=== PATIENT | female | born 1975 | race Caucasian/White ===

== ENCOUNTER → 2021-08-13 00:15 | Outpatient (CLI) | payer BC, SELFPAY ==
[2021-08-13 18:52] LABS: SARS-CoV-2 RNA PCR Negative
== END ==
PROVIDERS: PCP Internal Medicine; Visit Provider Internal Medicine
DX: J06.9 Acute upper respiratory infection, unspecified (principal); Z20.822 Contact with and (suspected) exposure to COVID-19
CPT/HCPCS: C9803; U0003; U0005

== ENCOUNTER 2024-01-05 10:00 | Emergency (ER) | payer OTHER, SELFPAY ==
[2024-01-05 10:09] VITALS: BP 152/81; PULSE 88; RESP 16; TEMP 36.2; O2SAT 100
--- NOTE | 2024-01-05 10:15 | ED.GENADULT ---
HPI - General Adult General Chief complaint: Eye Problems Stated complaint: Left Eye Irritation Time Seen by Provider: 01/05/24 10:16 Source: patient, RN notes reviewed and old records reviewed Mode of arrival: ambulatory Limitations: no limitations History of Present Illness HPI narrative: 48-year-old female presents to [facility] with complaint of left eye discomfort and scant drainage that started at 2:00 a.m. today. Patient denies any upper respiratory complaints at this time. Patient acuity checked upon arrival. Patient wearing reader glasses. Patient denies any visual changes. Related Data Home Medications Medication Instructions Recorded Confirmed zlhxcfuhukqh-Zn-ovxx-minerals 27 1 tablet PO DAILY 09/01/19 01/05/24 mg-0.4 mg tablet loratadine 10 mg disintegrating 20 mg PO PRN PRN Allergy Symptoms 02/12/21 01/05/24 tablet Allergies Allergy/AdvReac Type Severity Reaction Status Date / Time cyclobenzaprine Allergy Intermediate hypersensit Verified 01/05/24 10:17 ivity prednisone Allergy Intermediate Agitated, Verified 01/05/24 10:17 lack of appetite acetaminophen Allergy Mild Vomiting Verified 01/05/24 10:17 levofloxacin AdvReac Intermediate Dizziness Verified 01/05/24 10:17 Review of Systems Review of Systems: All systems reviewed & are unremarkable except as noted in HPI and below Constitutional: Constitutional: Reports no additional constitutional complaints Eyes: Eyes: Reports as per HPI, Denies change in vision, Denies diplopia, Reports eye discharge, Reports irritation ( left) and Reports photophobia ENT: Reports system reviewed and no additional complaints, except as documented Cardiovascular: Cardiovascular: Reports no additional cardiovascular complaints, Denies chest pain and Denies dyspnea Respiratory: Respiratory: Reports no additional respiratory complaints, Denies cough and Denies dyspnea Musculoskeletal: Musculoskeletal: Reports no additional musculoskeletal complaints Neurologic: Reports system reviewed and no additional complaints, except as documented Psychiatric: Psychiatric: Reports no additional psychiatric complaints [facility] Past Medical History Medical History Cervical osteoarthritis Depression Hypertension Mitral valve prolapse Panic attacks Screening mammogram, encounter for Surgical History Surgical History History of laparoscopy (~1999) endometriosis History of total abdominal hysterectomy (~2003) Family History Family History Father Hypertension Family history of smoking Cerebrovascular accident Grandparent Asthma Acute myocardial infarction, Onset Age: 50 Family history of heart disease in male family member before age 55 maternal grandfather Diabetes mellitus maternal grandfather Family history of aortic aneurysm Sibling Asthma Mother Family history of elevated blood lipids Patient's mother is Social History Social History Smoking packs per day: 0.5 Smoking cigarettes per day: 10.0 Years smoked: 30 Smoking pack-years: 15.00 Smoking status: Current every day smoker Tobacco type: cigarettes Second hand tobacco smoke exposure: Yes Alcohol intake: current Drinks per week: 42 Alcohol use details: 6 beers a day Substance use: never Substance use type: does not use Lack of Transportation: No Lack of Food: Never True Current Housing: I Have Housing Concerned About Future Housing: No Difficulty Paying Gas/Electric Bills: No Difficulty Paying for Meds: No Currently Unemployed: No Education: Associate Degree Difficulty w/ Childcare or Family Care: No Living arrangements: with family Additional living arrangements comments: mar
== END 2024-01-05 10:48 | disposition home or self-care (01) ==
PROVIDERS: Emergency Provider Nurse Practitioner Family; PCP Physician Assistant
DX: H10.9 Unspecified conjunctivitis (principal); F17.210 Nicotine dependence, cigarettes, uncomplicated; M47.812 Spondylosis without myelopathy or radiculopathy, cervical region; I10 Essential (primary) hypertension; I34.1 Nonrheumatic mitral (valve) prolapse; F32.A Depression, unspecified; F41.0 Panic disorder [episodic paroxysmal anxiety]
CPT/HCPCS: 99213; G0463

== ENCOUNTER 2024-04-16 13:24 | Emergency (ER) | payer OTHER, SELFPAY ==
--- NOTE | ~2024-04-16 | XR_ITS ---
EXAMINATION: XR ribs RT 2V DATE: 04/16/2024 13:56 INDICATION: Right rib pain. TECHNIQUE: 2 views of the right ribs on 3 radiographs were obtained. COMPARISON: Chest 2 views 07/03/2019 FINDINGS: There is no right-sided pneumonia, pleural effusion, or pneumothorax. IMPRESSION: 1. No rib fracture. Reviewed, dictated and finalized at location A. IMPRESSION: 1. No rib fracture.
--- NOTE | 2024-04-16 13:30 | ED.CHESTPAIN ---
HPI - Chest Pain General Chief Complaint: Unspecified Stated Complaint: Rib/Chest Pain and Injury Time Seen by Provider: 04/16/24 14:08 Mode of arrival: ambulatory Limitations: no limitations History of Present Illness HPI narrative: 48 year old female presents with concern for midsternal and right chest wall pain. She reports on Friday she was reaching for an object overhead and she felt a painful pop in her low sternum ache radiating under the right breast. She reports symptoms happened again when she is reaching and to the washing machine with her right arm. She reports when she is not moving she has no pain but when she moves her right extremity, coughs, takes a deep breath she has pain. She denies other pain. She denies rash, redness, open skin, warmth to the area. MD complaint: chest discomfort Related Data Home Medications Medication Instructions Recorded Confirmed saxmybetdamf-Kk-xofs-minerals 27 1 tablet PO DAILY 09/01/19 04/16/24 mg-0.4 mg tablet loratadine 10 mg disintegrating 20 mg PO PRN PRN Allergy Symptoms 02/12/21 04/16/24 tablet Allergies Allergy/AdvReac Type Severity Reaction Status Date / Time cyclobenzaprine Allergy Intermediate hypersensit Verified 04/16/24 13:28 ivity prednisone Allergy Intermediate Agitated, Verified 04/16/24 13:28 lack of appetite acetaminophen Allergy Mild Vomiting Verified 04/16/24 13:28 levofloxacin AdvReac Intermediate Dizziness Verified 04/16/24 13:28 Review of Systems Review of Systems: CONSTITUTIONAL: Denies malaise, chills, sweats, or fever. CARDIOVASCULAR: Denies chest pain, palpitations, or edema. RESPIRATORY: Denies cough or dyspnea. GASTROINTESTINAL: Denies abdominal pain SKIN: Denies rash or itching. MUSCULOSKELETAL: Reports lower sternal chest wall pain radiating to the right chest NEUROLOGIC: Denies numbness, weakness All systems reviewed & are unremarkable except as noted in HPI and below PMFSH Past Medical History Medical History Cervical osteoarthritis Depression Hypertension Mitral valve prolapse Panic attacks Screening mammogram, encounter for Surgical History Surgical History History of laparoscopy (~1999) endometriosis History of total abdominal hysterectomy (~2003) Family History Family History Father Hypertension Family history of smoking Cerebrovascular accident Grandparent Asthma Acute myocardial infarction, Onset Age: 50 Family history of heart disease in male family member before age 55 maternal grandfather Diabetes mellitus maternal grandfather Family history of aortic aneurysm Sibling Asthma Mother Family history of elevated blood lipids Patient's mother is Social History Social History Smoking packs per day: 0.5 Smoking cigarettes per day: 10.0 Years smoked: 30 Smoking pack-years: 15.00 Smoking status: Current every day smoker Tobacco type: cigarettes Second hand tobacco smoke exposure: Yes Alcohol intake: current Drinks per week: 42 Alcohol use details: 6 beers a day Substance use: never Substance use type: does not use Lack of Transportation: No Lack of Food: Never True Current Housing: I Have Housing Concerned About Future Housing: No Difficulty Paying Gas/Electric Bills: No Difficulty Paying for Meds: No Currently Unemployed: No Education: Associate Degree Difficulty w/ Childcare or Family Care: No Living arrangements: with family Additional living arrangements comments: Occupation/Education: unemployed Gender identity (if verbalized by the patient): Female Sexual Orientation (if Verbalized by the Patient): Straight or Heterosexual Spiritual care co
[2024-04-16 13:42] VITALS: BP 143/85; PULSE 88; RESP 16; TEMP 36.5; O2SAT 100
== END 2024-04-16 14:23 | disposition home or self-care (01) ==
PROVIDERS: Emergency Provider Nurse Practitioner; PCP Internal Medicine
DX: R07.89 Other chest pain (principal); F17.210 Nicotine dependence, cigarettes, uncomplicated; M47.812 Spondylosis without myelopathy or radiculopathy, cervical region; I10 Essential (primary) hypertension; I34.1 Nonrheumatic mitral (valve) prolapse
CPT/HCPCS: 71100; 99213; G0463

== ENCOUNTER 2025-03-02 09:35 | Outpatient (CLI) | payer OTHER, SELFPAY ==
--- NOTE | ~2025-03-02 | CT_ITS ---
CT Scan of the Chest without Contrast: Clinical Indication: Lung cancer screening, nicotine dependence Technique: Contiguous sections were acquired throughout the chest without intravenous contrast. Dose reduction technique was used on this scan by utilizing automated exposure control and iterative recon struction technique. The dose-length product (DLP) was 46.77 mGy-cm. Findings: There is no evidence of any significant mediastinal, hilar or axillary lymphadenopathy. The mediastin al soft tissues appear normal. There is no evidence of pleural or pericardial effusion. The lungs are clear. No pulmonary nodules or infiltrates are noted. Images through the upper abdomen reveal no abnormalities. Impression: Lung RADS 1: Negative. 12 month follow-up screening CT advised. Reviewed, dictated and finalized at location . Impression: Lung RADS 1: Negative. 12 month follow-up screening CT advised.
== END 2025-03-02 09:36 | disposition home or self-care (01) ==
LOC: MICIMG 09:35
PROVIDERS: PCP Internal Medicine; Visit Provider Internal Medicine
DX: Z12.2 Encounter for screening for malignant neoplasm of respiratory organs (principal); F17.210 Nicotine dependence, cigarettes, uncomplicated
CPT/HCPCS: 71271